=== PATIENT | male | born 1970 | race Caucasian/White ===

== ENCOUNTER → 2024-08-19 08:08 | Outpatient (REF) | payer OTHER, SELFPAY | LOC: RAD 08:08 | PROVIDERS: ATTENDING PHYSICIAN Internal Medicine Gastroenterology; FAMILY PHYSICIAN Family Medicine | DX: K50.00 Crohn's disease of small intestine without complications (principal) | CPT/HCPCS: 74177; Q9967 ==

== ENCOUNTER → 2024-10-10 14:54 | Outpatient (REF) | payer OTHER, SELFPAY | LOC: HWRAD 14:54 | PROVIDERS: ATTENDING PHYSICIAN Nurse Practitioner Adult Health; FAMILY PHYSICIAN Family Medicine | DX: Z87.891 Personal history of nicotine dependence (principal) | CPT/HCPCS: 71271 ==

== ENCOUNTER → 2024-11-01 07:06 | Outpatient (REF) | payer OTHER, SELFPAY | LOC: MRI 07:06 | PROVIDERS: ATTENDING PHYSICIAN Orthopaedic Surgery; FAMILY PHYSICIAN Family Medicine | DX: M25.522 Pain in left elbow (principal) | CPT/HCPCS: 73221 ==

== ENCOUNTER → 2024-11-07 13:42 | Outpatient (REF) | payer OTHER, SELFPAY | LOC: HWCARD 13:42 | PROVIDERS: ATTENDING PHYSICIAN Orthopaedic Surgery; FAMILY PHYSICIAN Family Medicine | DX: Z01.818 Encounter for other preprocedural examination (principal) | CPT/HCPCS: 93005 ==

== ENCOUNTER 2024-11-08 06:07 | Day surgery (SDC) | payer OTHER, SELFPAY ==
--- NOTE | 2024-11-07 16:05 | PTCARENOTE ---
Abnormal ECG done 11/07/[address] Oliveros, no further intervention requested.
[2024-11-08] VITALS (8 sets, daily range): BP systolic 112–152; BP diastolic 71–98; BMI 52.8
[2024-11-08] MEDS: TYLENOL 1000 MG PO (06:35)
[2024-11-08] MEDS: NORMOSOL-R/PLASMALYTE-A 1000 IV (06:35)
[2024-11-08] MEDS: DILAUDID 0.5 MG IV ×2 (09:18→09:23)
[2024-11-08] MEDS: DILAUDID 0.25 MG IV (09:37)
== END 2024-11-08 10:11 | disposition home or self-care (01) ==
LOC: SDS 06:07
PROVIDERS: ATTENDING PHYSICIAN Orthopaedic Surgery
DX: M65.332 Trigger finger, left middle finger (principal); S46.212A Strain of muscle, fascia and tendon of other parts of biceps, left arm, initial encounter; X58.XXXA Exposure to other specified factors, initial encounter
CPT/HCPCS: 24342; 26055; C1713